=== PATIENT | male | born 1950 | race Hispanic/Latino ===

== ENCOUNTER 2017-12-20 16:08 | Inpatient (IN) | payer OTHER ==
[2017-12-20 16:24] LABS: #Basophils 0.1 thou/uL (0.0-0.2); #Eosinphils 0.2 thou/uL (0.0-0.7); #Lymphocytes 2.8 thou/uL (1.20-3.40); #Monocytes 1.2 thou/uL (0.11-0.59); #Neutrophils 6.4 thou/uL (1.40-6.50); %Basophils 0.5 % (0.0-1.0); %Eosinophils 1.8 % (0.0-10.0); %Lymphocytes 26.4 % (21.0-51.0); %Monocytes 11.2 % (0.0-10.0); %Neutrophils 60.2 % (42.0-75.0); Hemoglobin 14.5 g/dL (14.0-18.0); Mean Corpuscular HGB CONC 33.3 g/dL (32.0-36.0); Mean Corpuscular Hemoglobin 29.3 pg (27.0-31.0); Mean Corpuscular Volume 88.1 fl (80.0-94.0); Mean Platelet Volume 7.4 fL (7.4-10.4); Platelet Count 251 thou/uL (130-400); RBC Distribution Width 11.8 % (11.5-14.5); Red Blood Cell (RBC) Count 4.95 mill/uL (4.70-6.10); White Blood Cell (WBC) Count 10.7 thou/uL (4.8-10.8)
[2017-12-20 16:39] LABS: ALT (SGPT) 23 U/L (8-55); AST (SGOT) 21 U/L (5-34); Alkaline Phosphatase 140 U/L (40-150); Anion Gap 13 mmol/L (10-20); BUN (Urea Nitrogen) 16 mg/dL (8.4-25.7); Bilirubin, Total 0.6 mg/dL (0.2-1.2); CK (CPK) 62 U/L (30-200); Calc. Creatinine Clearance 0 mL/min (70-130); Calcium 9.4 mg/dL (7.8-10.44); Carbon Dioxide 25 mmol/L (23-31); Chloride 101 mmol/L (98-107); Estimated GFR-MDRD 88; Globulin 4.9 g/dL (2.4-3.5); Glucose 94 mg/dL (80-115); Protein, Total 8.9 g/dL (5.8-8.1); Sodium 135 mmol/L (136-145)
[2017-12-20 16:44] LABS: CKMB 1.5 ng/mL (0-6.6); Troponin I Less than 0.010 ng/mL (< 0.028)
[2017-12-20] MEDS ORDERED: Diltiazem HCl 125 MG, Admixture Fee 1 EACH in Sodium Chloride 0.9% 100 ML IVPB SCH (17:15)
--- NOTE | 2017-12-20 17:46 | RAD ---
PA AND LATERAL CHEST: Date: 12-20-17 History: Cough. Comparison: None available. FINDINGS: Cardiac silhouette and pulmonary vasculature are within normal limits. Lungs are clear. Vascular calc ifications are seen in the thoracic aorta. Osseous structures are intact. IMPRESSION: No acute cardiopulmonary process. POS: LLOYDH
[2017-12-20] MEDS ORDERED: Ondansetron HCl/PF 4 MG/2 ML Vial IVP PRN (19:02)
[2017-12-20] MEDS ORDERED: Ondansetron ODT 4 MG TAB SL PRN (19:02)
[2017-12-20] MEDS ORDERED: Acetaminophen 325 MG TAB PO PRN ×2 (19:02→21:58)
[2017-12-20 19:54] LABS: Troponin I 0.014 ng/mL (< 0.028)
[2017-12-20] MEDS ORDERED: Enoxaparin Sodium 80 MG/0.8 ML SYRINGE SC SCH (20:00)
[2017-12-20] MEDS ORDERED: Guaifenesin DM 100-10/5 ML UDCUP PO PRN (21:58)
[2017-12-20] MEDS ORDERED: Acetaminophen 650 MG Suppository PR PRN (21:58)
[2017-12-20] MEDS ORDERED: Zolpidem Tartrate 5 MG TAB PO PRN (21:58)
[2017-12-20] MEDS ORDERED: Bisacodyl 5 MG TAB PO PRN (21:58)
[2017-12-20] MEDS ORDERED: Diltiazem 125 MG in Sodium Chloride 0.9% 100 ML IVPB SCH (22:00)
[2017-12-20 22:17] VITALS: BMI 29.0
--- NOTE | 2017-12-20 22:40 | HP ---
PRIMARY CARE PHYSICIAN: Bertha Qureshi M.D. CHIEF COMPLAINT: Chest pain. HISTORY OF PRESENT ILLNESS: Mr. Johnson is a pleasant 67-year-old gentleman who was seen at [facility] on 12/20/2017. He mainly speaks Welsh. History was obtained through a commodity buyer. He returned from a trip to [place] 2 weeks ago. After that, he has been having cough. He has also be en having shortness of breath with exertion. He also reports fatigue and generalized weakness. He r eports that he had mild chest discomfort over the last couple of weeks. He reports that this mild di scomfort turned into pressure today afternoon. He describes it as retrosternal, 3/10 at its worst, n onradiating, worse after coughing a lot, not worse with exertion, not accompanied by nausea or lighth eadedness, but accompanied by shortness of breath. He cannot recall any relieving factors. He also reports having palpitations. REVIEW OF SYSTEMS: The following complete review of systems was negative, unless otherwise mentioned in the HPI or below: Constitutional: Weight loss or gain, ability to conduct usual activities. Sk in: Rash, itching. Eyes: Double vision, pain. ENT/Mouth: Nose bleeding, neck stiffness, pain, te nderness. Cardiovascular: Palpitations, dyspnea on exertion, orthopnea. Respiratory: Shortness of breath, wheezing, cough, hemoptysis, fever or night sweats. Gastrointestinal: Poor appetite, abdom inal pain, heartburn, nausea, vomiting, constipation, or diarrhea. Genitourinary: Urgency, frequenc y, dysuria, nocturia. Musculoskeletal: Pain, swelling. Neurologic/Psychiatric: Anxiety, depressio n. Allergy/Immunologic: Skin rash, bleeding tendency. PAST MEDICAL HISTORY: Hypertension. PAST SURGICAL HISTORY: None. SOCIAL HISTORY: Occasional alcohol use, no tobacco use or recreational drug use. ALLERGIES: No known drug allergies. CURRENT MEDICATIONS: These need to be clarified. He takes an antihypertensive medication in additio n to aspirin 81 mg daily. FAMILY HISTORY: No family history of premature coronary artery disease. CODE STATUS: I discussed his code status. He is FULL CODE. PHYSICAL EXAMINATION: GENERAL: Mr. Johnson is awake and alert, not in acute distress. VITAL SIGNS: Blood pressure is 110/78, pulse is 96, his breathing at rate of 18, and saturating 97% on room air. He is afebrile. EYES: No scleral icterus. No conjunctival pallor. ENT: Moist mucosal membranes, no oropharyngeal erythema or exudates. NECK: Supple, nontender, normal range of movement. Trachea is midline. RESPIRATORY: Accessory muscles of breathing are not active. Chest wall movements are symmetric bila terally. LUNGS: Clear to auscultation without wheeze, rhonchi or crepitations. CARDIOVASCULAR: S1 and S2 are heard, irregular. Peripheral pulses palpable. No carotid bruit, no p ericardial rub. ABDOMEN: Soft, nontender, bowel sounds are heard, no hepatomegaly, no splenomegaly. NEUROLOGIC: Cranial nerves II-XII intact. Deep tendon reflexes are 2+. MUSCULOSKELETAL: Power is 5/5 in all 4 extremities. SKIN: No rashes or subcutaneous nodules. LYMPHATIC: No cervical lymphadenopathy. PSYCHIATRIC: Normal mood, normal affect, patient is oriented to person, place, and time. LABORATORY DATA: Mr. Johnson's labs and investigations were reviewed. I reviewed his electrocardiogr am, which shows atrial fibrillation with rapid ventricular response, no ST changes to suggest an acut e coronary syndrome. He also has premature ventricular complexes. I also reviewed his chest x-ray, which does not show any pulmonary infiltrates. He has an unremarkable CBC, decreased sodium of 135, otherwise unremarkable comprehensive metabolic profile and troponin I that is negative x2. ASSESSMENT AND PLAN: Mr. Johnson is a pleasant 67-year-old gentleman who was seen at [facility] on 12/20/2017. His problem list includes: 1. Chest pain: Etiology unclear, he has risk factors for coronary artery disease as well as for pul monary embolism. He has been started on therapeutic Lovenox, which I will continue. We will check D -dimer. We will also check stress test. We will also obtain echocardiogram. If there are any signi ficant abnormalities in the right ventricle, he may need a CT angiogram of the chest to rule out pulm onary embolism. 2. Atrial fibrillation with rapid ventricular response: He has been started on a Cardizem drip, whi ch I will continue. He will likely need a long-term anticoagulation based on his CHADS2 score. We w ill continue with therapeutic Lovenox for now. We will consult Cardiology Service for opinion and he lp with management. We will check 2D echocardiogram. We will also check TSH level. 3. Hypertension: Resume home medications once clarified, monitor vital signs and titrate antihypert ensives as needed. 4. Hyponatremia: Mild, likely asymptomatic. Recheck sodium level. Many thanks for allowing me to participate in your patient's care. Please feel free to contact me wi th any questions or concerns. LEVEL OF RISK: High. LEVEL OF COMPLEXITY: High.
[2017-12-20] MEDS ORDERED: Carvedilol 6.25 MG TAB PO SCH (23:45)
[2017-12-21 05:39] LABS: #Eosinphils 0.3 thou/uL (0.0-0.7); #Lymphocytes 2.4 thou/uL (1.20-3.40); #Neutrophils 5.6 thou/uL (1.40-6.50); %Basophils 0.5 % (0.0-1.0); %Eosinophils 2.8 % (0.0-10.0); %Lymphocytes 26.3 % (21.0-51.0); %Monocytes 10.4 % (0.0-10.0); Hemoglobin 13.2 g/dL (14.0-18.0); Mean Corpuscular HGB CONC 31.5 g/dL (32.0-36.0); Mean Corpuscular Hemoglobin 27.7 pg (27.0-31.0); Mean Corpuscular Volume 87.9 fl (80.0-94.0); Mean Platelet Volume 8.1 fL (7.4-10.4); Platelet Count 230 thou/uL (130-400); RBC Distribution Width 11.9 % (11.5-14.5); Red Blood Cell (RBC) Count 4.75 mill/uL (4.70-6.10); White Blood Cell (WBC) Count 9.3 thou/uL (4.8-10.8)
[2017-12-21 06:35] LABS: Anion Gap 14 mmol/L (10-20); BUN (Urea Nitrogen) 13 mg/dL (8.4-25.7); Calc. Creatinine Clearance 109 mL/min (70-130); Calcium 8.8 mg/dL (7.8-10.44); Carbon Dioxide 21 mmol/L (23-31); Chloride 103 mmol/L (98-107); Estimated GFR-MDRD Greater than 90; Glucose 87 mg/dL (80-115); Sodium 134 mmol/L (136-145)
[2017-12-21] MEDS ORDERED: Prevnar 13-Val Conj/PF 0.5 ML SYRINGE IM ONE (09:00)
[2017-12-21] MEDS ORDERED: Enoxaparin Sodium 40 MG/0.4 ML SYRINGE SC SCH (09:00)
[2017-12-21] MEDS: Carvedilol 6.25 MG TAB PO SCH ×2 (09:38→17:31)
[2017-12-21] MEDS: Aspirin 81 mg Enteric Coated Tablet PO SCH (09:39)
[2017-12-21] MEDS: Enoxaparin Sodium 80 MG/0.8 ML SYRINGE SC SCH ×2 (09:39→20:21)
[2017-12-21] MEDS ORDERED: Cefdinir 300 MG CAP PO SCH (09:45)
[2017-12-21 09:58] LABS: Hemoglobin A1c 5.6 % (4.0-6.0)
[2017-12-21] MEDS: Diltiazem 125 MG in Sodium Chloride 0.9% 100 ML IVPB SCH (16:07)
--- NOTE | 2017-12-21 17:26 | PDOC.PN ---
- Subjective Encounter Start Date: 12/21/17 Encounter Start Time: 11:00 Patient seen and examined. No new complaints. No overnight events. On Cardizem drip. Productive cough + - Objective Resuscitation Status: Resuscitation Status FULL:Full Resuscitation MAR Reviewed: Yes Vital Signs & Weight: Vital Signs (12 hours) Temp Pulse Resp BP BP Pulse Ox 12/21/17 15:15 98.1 F 92 18 143/90 H 98 12/21/17 11:40 98.2 F 89 18 127/82 12/21/17 09:38 117/68 12/21/17 08:00 98.2 F 103 H 16 12/21/17 07:02 98.2 F 103 H 16 123/79 Weight Weight 174 lb 9.6 oz I&O: 12/20/17 12/21/17 12/22/17 06:59 06:59 06:59 Intake Total 240 Output Total 450 Balance -210 Result Diagrams: 12/21/17 03:55 12/21/17 03:55 Radiology Reviewed by me: Yes (CXR - no infiltrate) EKG Reviewed by me: Yes (Tele - Afib) Phys Exam - Physical Examination Constitutional: NAD Neck: no JVD, supple Respiratory: no wheezing, no rales Coarse BS B/L, Symmetrical Cardiovascular: no rub, irregular no heaves/pulsations Gastrointestinal: soft, non-tender, no distention, positive bowel sounds Musculoskeletal: no edema Neurological: non-focal, normal sensation, moves all 4 limbs Psychiatric: A&O x 3 Dx/Plan - Plan IMPRESSION: 1. Afib with RVR - on Cardizem drip 2. CP - Trops negative 3. Acute Bronchitis ?CAP - suspected Pneumococcal 4. HTN 5. Hyponatremia PLAN: * Cont Cardizem drip - reduce to 2.5 mg/hr * Await Cardiology input * Cont Carvedilol * Add Omnicef/Doxy * Cont to monitor * AM labs including lipids * A1c negative Review of Systems - Review of Systems Respiratory: Cough, SOB with Excertion, Sputum. negative: Dry, Shortness of Breath, Hemoptysis, Pleuritic Pain, Wheezing Cardiovascular: negative: chest pain, palpitations, orthopnea, paroxysmal nocturnal dyspnea, edema, light headedness - Medications/Allergies Allergies/Adverse Reactions: Allergies Allergy/AdvReac Type Severity Reaction Status Date / Time No Known Allergies Allergy Unverified 12/20/17 17:13 Medications: Current Medications Acetaminophen (Tylenol) 650 mg PO Q4H PRN PRN Reason: Headache/Fever or Pain Last Admin: 12/21/17 13:54 Dose: 650 mg Acetaminophen (Tylenol) 650 mg [place] Q4H PRN PRN Reason: Headache/Fever or Pain Aspirin (Ecotrin) 81 mg PO DAILY [facility] Last Admin: 12/21/17 09:39 Dose: 81 mg Bisacodyl (Dulcolax) 10 mg PO DAILYPRN PRN PRN Reason: Constipation Carvedilol (Coreg) 6.25 mg PO BID-[facility] Last Admin: 12/21/17 09:38 Dose: 6.25 mg Cefdinir (Omnicef) 300 mg PO BID [facility] Doxycycline Hyclate (Vibramycin) 100 mg PO BID [facility] Enoxaparin Sodium (Lovenox) 80 mg SC 0900,2100 [facility] Last Admin: 12/21/17 09:39 Dose: 80 mg Guaifenesin/Dextromethorphan (Robitussin Dm) 15 ml PO Q4H PRN PRN Reason: Cough Diltiazem HCl 125 mg/ Sodium (Chloride) 125 mls @ 2.5 mls/hr IVPB INF [facility]OCKY; 2.5 MG/HR PRN Reason: Protocol Last Admin: 12/21/17 16:07 Dose: 125 mls Sodium Chloride (Flush - Normal Saline) 10 ml IVF Q12HR [facility] Sodium Chloride (Flush - Normal Saline) 10 ml IVF PRN PRN PRN Reason: Saline Flush Zolpidem Tartrate (Ambien) 5 mg PO HSPRN PRN PRN Reason: Insomnia
[2017-12-21] MEDS ORDERED: Labetalol HCl 100 MG/20 ML VIAL SLOW IVP PRN (17:27)
[2017-12-21] MEDS: Doxycycline 100 MG CAP PO SCH (20:21)
[2017-12-21] MEDS: Cefdinir 300 MG CAP PO SCH (20:21)
[2017-12-21] MEDS ORDERED: Doxycycline 100 MG CAP PO SCH (21:00)
--- NOTE | 2017-12-21 21:35 | CON ---
DATE OF CONSULTATION: 12/21/2017 HISTORY: Svitlana Hernandez is a 67-year-old male who only has a past medical history of hypertension. Approximately 2 weeks ago, he started to cough and took some [id number] medications, which did not seem to help. He also noted at times his heart beating very rapidly and some chest pressure associated with this. Ultimately, he came to emergency room and was found to be in atrial fibrillation with fast ventricular response and was admitted for further treatment and evaluation. He denies any previous cardiac problems. He denies any history of heart murmur or rheumatic fever. PAST MEDICAL HISTORY: Hypertesion. He denies any history of hypercholesterolemia or diabetes. MEDICATIONS: Carvedilol 6.25 b.i.d., aspirin 81 daily. ALLERGIES: None. OPERATIONS: None. SOCIAL HISTORY: He smoked 1/3 of a pack per day, but stopped 7 years ago. He occasionally drinks alcohol. FAMILY HISTORY: Negative for coronary artery disease. REVIEW OF SYSTEMS: Twelve point review of systems unremarkable. PHYSICAL EXAMINATION: VITAL SIGNS: 127/82, pulse of 89 and irregularly irregular. HEENT: PERRL. NECK: Supple. CHEST: Clear. CARDIAC: S1 and S2 are normal, without any S3 or S4. There is a 2-3/6 holosystolic murmur at the apex that radiates to the axilla. Carotid upstrokes normal without bruits. ABDOMEN: Normal bowel sounds, without tenderness, organomegaly. EXTREMITIES: Revealed no clubbing, cyanosis, or edema. NEUROLOGIC: Grossly intact. SKIN: Warm and dry. LABORATORY AND X-RAY FINDINGS: EKG reveals atrial fibrillation with rate of 104 per minute. Chest x-ray is unremarkable. Sodium 134, potassium 4.0, chloride 103, carbon dioxide 21, BUN 13, creatinine 0.75. Hemoglobin A1c 5.6, troponin I x3 is normal. CK-MB is normal. TSH is normal. D-dimer 0.50. IMPRESSION: 1. Atrial fibrillation with fast ventricular response. It is unclear exactly when this started. 2. Systolic murmur. 3. Hypertension. 4. Unknown cholesterol status. 5. Former smoker. PLAN: At the present time, his rate is well controlled with intravenous Cardizem. Echocardiogram will be performed to assess left ventricular function as well as to better evaluate his murmur. He will undergo adenosine Cardiolite testing unless he has severe left ventricular dysfunction. Once his left ventricular function is known from echo then other medication will be started. He probably will eventually need to undergo transesophageal echo and electrical cardioversion. AUGUST
[2017-12-22 04:45] LABS: #Basophils 0.1 thou/uL (0.0-0.2); #Eosinphils 0.1 thou/uL (0.0-0.7); #Neutrophils 9.3 thou/uL (1.40-6.50); %Basophils 0.4 % (0.0-1.0); %Eosinophils 0.9 % (0.0-10.0); %Lymphocytes 16.1 % (21.0-51.0); %Monocytes 8.3 % (0.0-10.0); %Neutrophils 74.4 % (42.0-75.0); Mean Corpuscular HGB CONC 32.6 g/dL (32.0-36.0); Mean Corpuscular Hemoglobin 28.3 pg (27.0-31.0); Mean Corpuscular Volume 86.8 fl (80.0-94.0); Mean Platelet Volume 8.3 fL (7.4-10.4); Platelet Count 230 thou/uL (130-400); RBC Distribution Width 11.8 % (11.5-14.5); Red Blood Cell (RBC) Count 4.96 mill/uL (4.70-6.10); White Blood Cell (WBC) Count 12.5 thou/uL (4.8-10.8)
[2017-12-22 05:07] LABS: Albumin 3.5 g/dL (3.4-4.8); Anion Gap 13 mmol/L (10-20); BUN (Urea Nitrogen) 16 mg/dL (8.4-25.7); BUN/Creatinine Ratio 21.33; Calc. Creatinine Clearance 109 mL/min (70-130); Carbon Dioxide 22 mmol/L (23-31); Chloride 99 mmol/L (98-107); Cholesterol 133 mg/dl (< 200 Desired); Estimated GFR-MDRD Greater than 90; Glucose 98 mg/dL (80-115); HDL Cholesterol 33 mg/dL (>60 Neg Risk); LDL Cholesterol, Calculated 87 mg/dL; Magnesium 2.2 mg/dL (1.6-2.6); Phosphorus 3.4 mg/dL (2.3-4.7); Potassium 4.2 mmol/L (3.5-5.1); Sodium 130 mmol/L (136-145); Triglycerides 64 mg/dL (Less than 150)
--- NOTE | 2017-12-22 08:10 | RAD ---
PA AND LATERAL OF THE CHEST: Indication: Cough and fever. Concern for pneumonia. FINDINGS: There is new airspace opacity seen within the region of the lower lingula. Right lung is clear. Mild cardiomegaly is stable. No pleural effusion is evident. No acute osseous abnormality is evident. IMPRESSION: Lingular infiltrate is new from the comparison examination suspicious for early pneumonia. Recommend radiographic follow up to resolution. POS: LLOYDH
--- NOTE | 2017-12-22 12:12 | NM ---
CARDIAC SPECT: CLINICAL HISTORY: 67-year-old male with chest pain, atrial fibrillation, and hypertension. TECHNIQUE: A myocardial perfusion scan was performed using the single isotope one day protocol with technetium-9 9m sestamibi. 11 mCi were injected intravenously for the rest exam followed by 30 mCi for the stress exam. Pharmacologic stress with Adenosine was monitored and interpreted by Dr. Cooper. FINDINGS: Homogeneous tracer distribution is seen in the myocardial segments on stress and rest images without fixed or reversible defects. GATED SPECT LVEF: 47%. WALL MOTION EXAM: No significant wall motion abnormalities are seen. IMPRESSION: Normal myocardial perfusion scan. POS: NICKY
[2017-12-22] MEDS: Enoxaparin Sodium 80 MG/0.8 ML SYRINGE SC SCH ×2 (12:14→20:23)
[2017-12-22] MEDS: Carvedilol 6.25 MG TAB PO SCH ×2 (12:14→17:24)
[2017-12-22] MEDS: Aspirin 81 mg Enteric Coated Tablet PO SCH (12:14)
[2017-12-22] MEDS: Cefdinir 300 MG CAP PO SCH ×2 (12:15→20:23)
[2017-12-22] MEDS: Doxycycline 100 MG CAP PO SCH ×2 (12:15→20:23)
--- NOTE | 2017-12-22 13:38 | PDOC.PN ---
- Subjective Encounter Start Date: 12/22/17 Encounter Start Time: 10:30 Patient seen and examined. On Cardizem drip. Coughing improving. No overnight events - Objective Resuscitation Status: Resuscitation Status FULL:Full Resuscitation MAR Reviewed: Yes Vital Signs & Weight: Vital Signs (12 hours) Temp Pulse Resp BP Pulse Ox 12/22/17 07:45 98.9 F 82 18 117/76 95 12/22/17 07:35 98.9 F 82 18 95 12/22/17 03:50 99.7 F H 100 20 114/56 L 94 L Weight Weight 169 lb 4.8 oz I&O: 12/21/17 12/22/17 12/23/17 06:59 06:59 06:59 Intake Total 240 707 Output Total 450 1075 Balance -210 -368 Result Diagrams: 12/22/17 03:56 12/22/17 03:56 Radiology Reviewed by me: Yes (CXR - Lingular infiltrate) EKG Reviewed by me: Yes (Tele Afib) Phys Exam - Physical Examination Constitutional: NAD HEENT: moist MMs Neck: no JVD Respiratory: no wheezing, no rhonchi Scat rales, Symmetrical Cardiovascular: RRR, no rub no heaves/pulsations Gastrointestinal: soft, non-tender, no distention, positive bowel sounds Musculoskeletal: no edema Neurological: non-focal, moves all 4 limbs Psychiatric: A&O x 3 Dx/Plan - Plan continue antibiotics, DVT proph w/lovenox IMPRESSION: 1. Afib with RVR - on Cardizem drip 2. CP - Trops negative 3. Sepsis due to CAP -?Pneumococcal 4. HTN 5. Hyponatremia PLAN: * Await Stress test * Cont Cardizem drip with Coreg * On anticoag for Afib * Cardiology input appreciateed * Cont Omnicef/Doxy * Cont to monitor * AM labs Laboratory Tests 12/22/17 03:56 Triglycerides 64 Cholesterol 133 LDL Cholesterol, Calc 87 Review of Systems - Review of Systems Constitutional: negative: fever, chills, sweats, weakness, malaise Cardiovascular: negative: chest pain, palpitations, orthopnea, paroxysmal nocturnal dyspnea, edema, light headedness Gastrointestinal: negative: Nausea, Vomiting, Abdominal Pain, Diarrhea, Constipation, Melena, Hematochezia - Medications/Allergies Allergies/Adverse Reactions: Allergies Allergy/AdvReac Type Severity Reaction Status Date / Time No Known Allergies Allergy Unverified 12/20/17 17:13 Medications: Current Medications Acetaminophen (Tylenol) 650 mg PO Q4H PRN PRN Reason: Headache/Fever or Pain Last Admin: 12/21/17 13:54 Dose: 650 mg Acetaminophen (Tylenol) 650 mg [place] Q4H PRN PRN Reason: Headache/Fever or Pain Aspirin (Ecotrin) 81 mg PO DAILY [facility] Last Admin: 12/22/17 12:14 Dose: 81 mg Bisacodyl (Dulcolax) 10 mg PO DAILYPRN PRN PRN Reason: Constipation Carvedilol (Coreg) 6.25 mg PO BID-[facility] Last Admin: 12/22/17 12:14 Dose: 6.25 mg Cefdinir (Omnicef) 300 mg PO BID [facility] Last Admin: 12/22/17 12:15 Dose: 300 mg Doxycycline Hyclate (Vibramycin) 100 mg PO BID [facility] Last Admin: 12/22/17 12:15 Dose: 100 mg Enoxaparin Sodium (Lovenox) 80 mg SC 0900,2100 [facility] Last Admin: 12/22/17 12:14 Dose: 80 mg Guaifenesin/Dextromethorphan (Robitussin Dm) 15 ml PO Q4H PRN PRN Reason: Cough Diltiazem HCl 125 mg/ Sodium (Chloride) 125 mls @ 2.5 mls/hr IVPB INF ROCKY; 2.5 MG/HR PRN Reason: Protocol Last Admin: 12/21/17 16:07 Dose: 125 mls Labetalol HCl (Normodyne) 10 mg SLOW IVP Q4H PRN PRN Reason: Systolic BP > 180 Sodium Chloride (Flush - Normal Saline) 10 ml IVF Q12HR [facility] Last Admin: 12/22/17 12:15 Dose: Not Given Sodium Chloride (Flush - Normal Saline) 10 ml IVF PRN PRN PRN Reason: Saline Flush Zolpidem Tartrate (Ambien) 5 mg PO HSPRN PRN PRN Reason: Insomnia
[2017-12-22] MEDS ORDERED: ADENOSINE 60 MG/20 ML VIAL ONE (16:36)
[2017-12-22] MEDS: Dronedarone HCl 400 MG TAB PO SCH (17:23)
[2017-12-22] MEDS: Diltiazem 125 MG in Sodium Chloride 0.9% 100 ML IVPB SCH (20:26)
[2017-12-23 05:27] LABS: #Eosinphils 0.2 thou/uL (0.0-0.7); #Lymphocytes 2.1 thou/uL (1.20-3.40); #Monocytes 0.9 thou/uL (0.11-0.59); #Neutrophils 6.7 thou/uL (1.40-6.50); %Eosinophils 1.5 % (0.0-10.0); %Monocytes 9.4 % (0.0-10.0); %Neutrophils 68.1 % (42.0-75.0); Hemoglobin 13.9 g/dL (14.0-18.0); Mean Corpuscular HGB CONC 32.9 g/dL (32.0-36.0); Mean Corpuscular Hemoglobin 29.3 pg (27.0-31.0); Mean Corpuscular Volume 89.3 fl (80.0-94.0); Platelet Count 248 thou/uL (130-400); RBC Distribution Width 11.7 % (11.5-14.5); Red Blood Cell (RBC) Count 4.72 mill/uL (4.70-6.10); White Blood Cell (WBC) Count 9.9 thou/uL (4.8-10.8)
[2017-12-23 05:37] LABS: Albumin 3.4 g/dL (3.4-4.8); Anion Gap 10 mmol/L (10-20); BUN (Urea Nitrogen) 14 mg/dL (8.4-25.7); BUN/Creatinine Ratio 17.72; Calc. Creatinine Clearance 100 mL/min (70-130); Carbon Dioxide 25 mmol/L (23-31); Chloride 101 mmol/L (98-107); Estimated GFR-MDRD Greater than 90; Glucose 100 mg/dL (80-115); Phosphorus 3.5 mg/dL (2.3-4.7); Potassium 3.8 mmol/L (3.5-5.1); Sodium 132 mmol/L (136-145)
[2017-12-23] MEDS: Aspirin 81 mg Enteric Coated Tablet PO SCH (08:19)
[2017-12-23] MEDS: Enoxaparin Sodium 80 MG/0.8 ML SYRINGE SC SCH ×2 (08:19→21:41)
[2017-12-23] MEDS: Furosemide 20 MG TAB PO SCH (08:19)
[2017-12-23] MEDS: Cefdinir 300 MG CAP PO SCH ×2 (08:19→21:41)
[2017-12-23] MEDS: Doxycycline 100 MG CAP PO SCH ×2 (08:19→21:41)
[2017-12-23] MEDS: Dronedarone HCl 400 MG TAB PO SCH ×2 (08:19→17:22)
[2017-12-23] MEDS: Carvedilol 6.25 MG TAB PO SCH ×2 (08:19→17:22)
--- NOTE | 2017-12-23 15:33 | PQF ---
CLINICAL DOCUMENTATION IMPROVEMENT CLARIFICATION FORM: ICD-10 Updated PLEASE DO AN ADDENDUM TO THE PROGRESS NOTE WITH ANY DOCUMENTATION UPDATES OR ADDITIONS AND CARRY THROUGH TO DC SUMMARY. THANK YOU. DATE: 12/23/17 ATTN: DR. QUESADA Please exercise your independent, professional judgment in responding to the clarification form. Clinical indicators are provided on the bottom of this form for your review Diagnosis: SEPSIS Present on Admission (POA): [x ] Yes [ ] No [ ] Unable to determine Coding guidelines require hospitals to identify whether a diagnosis was present on admission (POA) or not. To accurately assign the appropriate POA indicator, this information must be clearly documented within the medical record. CLINICAL INDICATORS - SIGNS / SYMPTOMS / LABS PROGRESS NOTE 12/22: "SEPSIS DUE TO CAP- ? PNEUMOCOCCAL" WBC 12/22: 12.5 PULSE 147 RR 24 RISKS: PNEUMONIA TREATMENT: OMNICEF (12/21/17-PRESENT) DOXYCYCLINE (12/21-PRESENT) TELEMETRY MONITORING (This form is maintained as a part of the permanent medical record) 2014 [employer]. All Rights Reserved [email or web address] [email or web address] Office: [phone] AUGUST
--- NOTE | 2017-12-23 20:28 | PDOC.PN ---
- Subjective Encounter Start Date: 12/23/17 Encounter Start Time: 14:00 Patient seen and examined. No new complaints. No overnight events. in Afib - Objective Resuscitation Status: Resuscitation Status FULL:Full Resuscitation MAR Reviewed: Yes Vital Signs & Weight: Vital Signs (12 hours) Temp Pulse Resp BP Pulse Ox 12/23/17 16:39 98.2 F 67 18 100/73 96 12/23/17 12:14 97.9 F 96 18 120/55 L 96 Weight Weight 169 lb 4.8 oz I&O: 12/22/17 12/23/17 12/24/17 06:59 06:59 06:59 Intake Total 707 Output Total 1075 Balance -368 Result Diagrams: 12/23/17 04:32 12/23/17 04:32 EKG Reviewed by me: Yes (Tele Afib) Phys Exam - Physical Examination Constitutional: NAD Respiratory: no wheezing, no rhonchi Scat rales at bases Cardiovascular: RRR, irregular Gastrointestinal: soft, non-tender, positive bowel sounds Musculoskeletal: no edema Neurological: moves all 4 limbs Psychiatric: A&O x 3 Dx/Plan - Plan DVT proph w/lovenox, DVT proph w/SCDs IMPRESSION: 1. Afib with RVR 2. CP - Trops negative 3. Sepsis due to CAP -?Pneumococcal - present on admission 4. HTN 5. Hyponatremia PLAN: * Cont Cardizem drip * On anticoag for Afib * Cardiology following * Cont Omnicef/Doxy * Cont to monitor Review of Systems - Review of Systems Respiratory: negative: Cough, Dry, Shortness of Breath, Hemoptysis, SOB with Excertion, Pleuritic Pain, Sputum, Wheezing Cardiovascular: negative: chest pain, palpitations, orthopnea, paroxysmal nocturnal dyspnea, edema, light headedness - Medications/Allergies Allergies/Adverse Reactions: Allergies Allergy/AdvReac Type Severity Reaction Status Date / Time No Known Allergies Allergy Unverified 12/20/17 17:13 Medications: Current Medications Acetaminophen (Tylenol) 650 mg PO Q4H PRN PRN Reason: Headache/Fever or Pain Last Admin: 12/21/17 13:54 Dose: 650 mg Acetaminophen (Tylenol) 650 mg [place] Q4H PRN PRN Reason: Headache/Fever or Pain Aspirin (Ecotrin) 81 mg PO DAILY [facility] Last Admin: 12/23/17 08:19 Dose: 81 mg Bisacodyl (Dulcolax) 10 mg PO DAILYPRN PRN PRN Reason: Constipation Carvedilol (Coreg) 6.25 mg PO BID-[facility] Last Admin: 12/23/17 17:22 Dose: 6.25 mg Cefdinir (Omnicef) 300 mg PO BID [facility] Last Admin: 12/23/17 08:19 Dose: 300 mg Doxycycline Hyclate (Vibramycin) 100 mg PO BID [facility] Last Admin: 12/23/17 08:19 Dose: 100 mg Dronedarone (Multaq) 400 mg PO BID-[facility] Last Admin: 12/23/17 17:22 Dose: 400 mg Enoxaparin Sodium (Lovenox) 80 mg SC 0900,2100 [facility] Last Admin: 12/23/17 08:19 Dose: 80 mg Furosemide (Lasix) 20 mg PO DAILY [facility] Last Admin: 12/23/17 08:19 Dose: 20 mg Guaifenesin/Dextromethorphan (Robitussin Dm) 15 ml PO Q4H PRN PRN Reason: Cough Diltiazem HCl 125 mg/ Sodium (Chloride) 125 mls @ 2.5 mls/hr IVPB INF [facility]; 2.5 MG/HR PRN Reason: Protocol Last Admin: 12/22/17 20:26 Dose: 125 mls Labetalol HCl (Normodyne) 10 mg SLOW IVP Q4H PRN PRN Reason: Systolic BP > 180 Sodium Chloride (Flush - Normal Saline) 10 ml IVF Q12HR [facility] Last Admin: 12/23/17 08:20 Dose: Not Given Sodium Chloride (Flush - Normal Saline) 10 ml IVF PRN PRN PRN Reason: Saline Flush Zolpidem Tartrate (Ambien) 5 mg PO HSPRN PRN PRN Reason: Insomnia
[2017-12-24] MEDS: Dronedarone HCl 400 MG TAB PO SCH ×2 (08:26→17:07)
[2017-12-24] MEDS: Enoxaparin Sodium 80 MG/0.8 ML SYRINGE SC SCH ×2 (08:26→20:06)
[2017-12-24] MEDS: Carvedilol 6.25 MG TAB PO SCH ×2 (08:26→17:07)
[2017-12-24] MEDS ORDERED: Diprivan 20 ML ONE (11:58)
[2017-12-24] MEDS ORDERED: Diprivan 0 ML ONE (11:58)
[2017-12-24] MEDS: Doxycycline 100 MG CAP PO SCH ×2 (15:01→20:07)
[2017-12-24] MEDS: Cefdinir 300 MG CAP PO SCH ×2 (15:01→20:07)
[2017-12-24] MEDS: Aspirin 81 mg Enteric Coated Tablet PO SCH (15:01)
[2017-12-24] MEDS: Furosemide 20 MG TAB PO SCH (15:01)
[2017-12-24] MEDS ORDERED: Propofol 200 MG/20 ML VIAL ONE (15:27)
[2017-12-24] MEDS ORDERED: Digoxin 0.125 MG TAB PO SCH (18:15)
[2017-12-24] MEDS ORDERED: Apixaban 5 MG TAB PO SCH (21:00)
--- NOTE | 2017-12-24 22:02 | PDOC.PN ---
- Subjective Encounter Start Date: 12/24/17 Encounter Start Time: 10:30 Patient seen and examined. No new complaints. No overnight events. On Cardizem drip. - Objective Resuscitation Status: Resuscitation Status FULL:Full Resuscitation MAR Reviewed: Yes Vital Signs & Weight: Vital Signs (12 hours) Temp Pulse Resp BP BP Pulse Ox 12/24/17 20:04 98.3 F 108 H 16 104/77 98 12/24/17 17:05 97.8 F 68 18 123/70 99 12/24/17 13:23 59 L 18 129/66 98 12/24/17 11:02 97.9 F 105 H 18 120/72 97 Weight Weight 165 lb 4.8 oz I&O: 12/23/17 12/24/17 12/25/17 06:59 06:59 06:59 Intake Total 120 170 Output Total 650 0 Balance -530 170 Result Diagrams: 12/25/17 04:34 12/25/17 04:34 EKG Reviewed by me: Yes (Tele Afib) Phys Exam - Physical Examination Constitutional: NAD Respiratory: no wheezing, no rhonchi Cardiovascular: no rub, irregular Gastrointestinal: soft, non-tender, positive bowel sounds Musculoskeletal: no edema Neurological: moves all 4 limbs Dx/Plan - Plan plan discussed w/ family, continue antibiotics IMPRESSION: 1. Afib with RVR - on Cardizem drip 2. CP - Trops negative 3. Sepsis due to CAP -?Pneumococcal - present on admission 4. HTN 5. Hyponatremia - improving PLAN: * Cont Cardizem drip * YENNI-CV today * On Lovenox 1mg/kg * Cardiology following * Cont Omnicef/Doxy * Cont to monitor Review of Systems - Review of Systems Respiratory: negative: Cough, Dry, Shortness of Breath, Hemoptysis, SOB with Excertion, Pleuritic Pain, Sputum, Wheezing Cardiovascular: negative: chest pain, palpitations, orthopnea, paroxysmal nocturnal dyspnea, edema, light headedness Gastrointestinal: negative: Nausea, Vomiting, Abdominal Pain, Diarrhea, Constipation, Melena, Hematochezia - Medications/Allergies Allergies/Adverse Reactions: Allergies Allergy/AdvReac Type Severity Reaction Status Date / Time No Known Allergies Allergy Unverified 12/20/17 17:13 Medications: Current Medications Acetaminophen (Tylenol) 650 mg PO Q4H PRN PRN Reason: Headache/Fever or Pain Last Admin: 12/21/17 13:54 Dose: 650 mg Acetaminophen (Tylenol) 650 mg [place] Q4H PRN PRN Reason: Headache/Fever or Pain Apixaban (Eliquis) 5 mg PO BID [facility] Last Admin: 12/24/17 20:06 Dose: 5 mg Aspirin (Ecotrin) 81 mg PO DAILY [facility] Last Admin: 12/24/17 15:01 Dose: 81 mg Bisacodyl (Dulcolax) 10 mg PO DAILYPRN PRN PRN Reason: Constipation Carvedilol (Coreg) 6.25 mg PO BID-[facility] Last Admin: 12/24/17 17:07 Dose: 6.25 mg Cefdinir (Omnicef) 300 mg PO BID [facility] Last Admin: 12/24/17 20:07 Dose: 300 mg Digoxin (Lanoxin) 0.25 mg PO DAILY [facility] Doxycycline Hyclate (Vibramycin) 100 mg PO BID [facility] Last Admin: 12/24/17 20:07 Dose: 100 mg Enoxaparin Sodium (Lovenox) 80 mg SC 0900,2100 [facility] Stop: 12/25/17 12:00 Last Admin: 12/24/17 20:06 Dose: 80 mg Furosemide (Lasix) 20 mg PO DAILY [facility] Last Admin: 12/24/17 15:01 Dose: 20 mg Guaifenesin/Dextromethorphan (Robitussin Dm) 15 ml PO Q4H PRN PRN Reason: Cough Labetalol HCl (Normodyne) 10 mg SLOW IVP Q4H PRN PRN Reason: Systolic BP > 180 Sodium Chloride (Flush - Normal Saline) 10 ml IVF Q12HR [facility] Last Admin: 12/24/17 20:07 Dose: 10 ml Sodium Chloride (Flush - Normal Saline) 10 ml IVF PRN PRN PRN Reason: Saline Flush Zolpidem Tartrate (Ambien) 5 mg PO HSPRN PRN PRN Reason: Insomnia
--- NOTE | 2017-12-24 22:06 | ECHO ---
This is a 67-year-old gentleman with paroxysmal atrial fibrillation and mitral regurgitation. DESCRIPTION OF PROCEDURE: The patient taken to PACU. The patient sedated by anesthesiology. Transesophageal probe was placed d istally in the esophagus and stomach. Echocardiograms were obtained. Transesophageal probe was remove d. FINDINGS 1. Biatrial enlargement. 2. 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 3. Moderate to severe mitral regurgitation. 4. Mild tricuspid regurgitation. 5. No thrombus in the appendage. 6. Atherosclerotic debris in the descending aorta. IMPRESSION: No formed thrombus in atrium/left atrial appendage with prolapse of the posterior mitral valve leafle t and moderate to severe mitral regurgitation.
[2017-12-25 05:59] LABS: Hemoglobin 14.6 g/dL (14.0-18.0); Platelet Count 281 thou/uL (130-400)
[2017-12-25 06:09] LABS: Anion Gap 13 mmol/L (10-20); BUN (Urea Nitrogen) 14 mg/dL (8.4-25.7); Calc. Creatinine Clearance 94 mL/min (70-130); Calcium 9.3 mg/dL (7.8-10.44); Carbon Dioxide 23 mmol/L (23-31); Chloride 102 mmol/L (98-107); Estimated GFR-MDRD Greater than 90; Glucose 94 mg/dL (80-115); Sodium 134 mmol/L (136-145)
[2017-12-25 08:05] VITALS: TEMP 97.5
[2017-12-25] MEDS: Carvedilol 6.25 MG TAB PO SCH (08:34)
[2017-12-25] MEDS: Doxycycline 100 MG CAP PO SCH (08:35)
[2017-12-25] MEDS: Aspirin 81 mg Enteric Coated Tablet PO SCH (08:35)
[2017-12-25] MEDS: Furosemide 20 MG TAB PO SCH (08:40)
[2017-12-25] MEDS: Cefdinir 300 MG CAP PO SCH (08:40)
[2017-12-25] MEDS: Enoxaparin Sodium 80 MG/0.8 ML SYRINGE SC SCH (08:42)
[2017-12-25] MEDS ORDERED: Digoxin 0.25 MG TAB PO SCH (09:00)
[2017-12-25] MEDS ORDERED: Enoxaparin Sodium 80 MG/0.8 ML SYRINGE SC SCH (09:00)
[2017-12-25] MEDS ORDERED: Apixaban 5 MG TAB PO SCH ×2 (10:00→21:00)
[2017-12-25] MEDS ORDERED: Amiodarone 200 MG TAB PO SCH ×2 (10:00→21:00)
[2017-12-25 13:49] VITALS: BP 120/83
--- NOTE | 2017-12-25 15:39 | CON ---
ELECTROPHYSIOLOGY CONSULTATION NOTE DATE OF CONSULTATION: 12/25/2017 REFERRING PHYSICIAN: Marquis Kahn M.D. I am seeing Mr. Hernandez at our [facility] telemetry floor as an electrophysiology hematology oncology consultant. His pr oblems are: 1. Persistent atrial arrhythmias. A. Presentation with atrial fibrillation with rapid rate, status post cardioversion on 12/24/2017 wi th subsequent recurrence of atrial flutter, which self-terminated, then atrial fibrillation resumed. B. Lovenox for anticoagulation. 2. Nonsustained medical tachycardia, on telemetry. 3. Valvular heart disease. A. YENNI from 12/24/2017 reveals normal LVEF, moderate to severe MR, biatrial enlargement, mild tricus pid regurgitation. B. Lexiscan from 12/22/2017 shows LVEF of 47%, no ischemia or scar. 4. Coronary artery risk factors. A. Prior history of smoking. B. Hypertension. ALLERGIES: None noted. MEDICATIONS AT HOME: Included carvedilol 6.25 twice a day, aspirin 81 daily and nitroglycerin 0.4 mg sublingual p.r.n. SUBJECTIVE: Mr. Johnson is a Irish speaking only. History is mostly obtained from the chart and al so discussion in Irish. This gentleman has been experiencing increasing shortness of breath with e xertion and generalized weakness, not much chest discomforts for the last couple of weeks prior to ad mission. He had felt some palpitations, but no true angina-like discomforts. He is not having nause a, vomiting or diaphoresis. He denies PND, orthopnea or excess fluid overload. Dyspnea was mostly e xertional. He denies passing out or dizzy spells. No stroke-like symptoms or bleeding issues. REVIEW OF SYSTEMS: Rest of 12-point systems was unremarkable. PAST MEDICAL HISTORY: As above. He denies history of rheumatic fever or prolonged childhood illness . SOCIAL HISTORY: He stopped smoking 7 years ago, but reported several pack per day smoking, does drin k alcohol on occasion. Denies drug use. FAMILY HISTORY: Noncontributory. OBJECTIVE DATA: VITAL SIGNS: Blood pressure is 120/81, heart rate 66, respirations 20 and temperature 97.5 degrees F ahrenheit. GENERAL: This is an alert and oriented man in no apparent distress. NECK: Supple. Jugular veins not distended. CHEST: Coarse without crackles. CARDIAC: Heart sounds are irregularly irregular. S1 and S2 variable. There is 2/6 holosystolic mur murs heard at the left lower sternal border. PMI is nonpalpable. ABDOMEN: Benign. Bowel sounds positive. EXTREMITIES: Lower extremities without edema, clubbing or cyanosis. DATABASE: Telemetry strips reveals atrial fibrillation. Currently after cardioversion, brief sinus rhythm was converted to atrial flutter, which self-terminated to sinus rhythm, but again shortly afte r that atrial fibrillation recurred. A short run of nonsustained VT is seen. EKG considered atrial fibrillation on admission and sinus rhythm post-cardioversion. No significant QT prolongation. Narr ow QRS is noted. LABORATORY DATA: Sodium 134, potassium 4, BUN is 13 and creatinine is 0.5. Electrolytes with sodium of 135, potassium 4, BUN 16 and creatinine is 0.87. White blood cell count is 9.9, hemoglobin 13.9 and platelet count is 248. D-dimer is 0.5. ASSESSMENT AND PLAN: Mr. Hernandez is a pleasant 67-year-old man with a prior history of hypertension, who is now presented with atrial fibrillation with rapid rates with associated dyspnea. His YENNI dem onstrated moderate to severe mitral regurgitation and biatrial enlargement. Cardioversion was with r ecurrence of atrial flutter than fibrillation. He also had nonsustained ventricular tachycardia, which is unprovoked and asymptomatic. On the other hand, he has normal left ventricular ejection fraction and no prior history of loss of consciousness . We discussed the issue with Dr. Kahn. At this point, it would be reasonable to consider some ant iarrhythmic agents to suppress this patient's arrhythmia. Sotalol versus amiodarone could be contemp lated. At this point, patient would like to go home. Outpatient amiodarone loading is reasonable. Monitoring of his heart rate might be necessary. Long Term, we can consider switching amiodarone if a ffordable to [place]. We also discussed the future plans for atrial fibrillation. Reevaluation of his mitral regurgitation might be necessary after stabilization and possible quaker of sinus rhythm. If indeed the mitr al regurgitation worsens and his left ventricular function becomes more depressed, he might need mitr al valve surgery in which setting we could consider a maze procedure alternatively or in addition to left atrial ablation procedure also a consideration. He will likely benefit for anticoagulation. Eliquis would be reasonable. No definite evidence of rh eumatic heart disease or mitral stenosis present. Dr. Kahn will see him as an outpatient. Thank you again for allowing me to participate in the care of this patient.
--- NOTE | 2017-12-26 00:26 | DIS ---
DISCHARGE DIAGNOSES: 1. Atrial fibrillation with rapid ventricular response. 2. Atypical chest pain, likely secondary to atrial fibrillation. 3. Sepsis with community-acquired pneumonia. 4. Hypertension. 5. Hyponatremia. HOSPITAL COURSE: While the patient was in hospital, the patient was seen by Cardiology. The patient underwent transesophageal cardioversion, which was successful. The patient also was placed on amiod arone as well as Eliquis. The patient was found to have community-acquired pneumonia thought to be p neumococcal in nature. The patient was started on antibiotics. The patient had improved significant ly and was asymptomatic with no further interventions that were required. Considering the patient do ing significantly well, we are comfortable discharging the patient home with prescriptions for amioda miles, Lasix, Eliquis as well as Augmentin. The patient was instructed to follow up with primary care physician in 1 week as well as communications director as per the recommendations. DISPOSITION: To home. DISCHARGE CONDITION: Significantly improved from when he first came in. DISCHARGE MEDICATIONS: Please see home reconciled medication list. DISCHARGE DIET: Heart-healthy diet. FOLLOWUP APPOINTMENTS: As stated, the patient will follow up with primary care physician in one week as well as Cardiology as per the recommendations. DISCHARGE PLAN: Discharge plan was greater than 30 minutes.
[2017-12-26] MEDS ORDERED: Digoxin 0.125 MG TAB PO SCH (09:00)
--- NOTE | 2017-12-26 19:03 | EKG ---
Test Reason : Blood Pressure : / mmHG Vent. Rate : 104 BPM Atrial Rate : 080 BPM P-R Int : 000 ms QRS Dur : 074 ms QT Int : 288 ms P-R-T Axes : 000 024 026 degrees QTc Int : 378 ms Atrial fibrillation with rapid ventricular response with premature ventricular or aberrantly conducte d complexes Abnormal ECG Confirmed by JAVIER VERMA, HENRIQUE ([id number]), editor school photograph JOSIAS JOHNSON ([id number]) on 12/26/2017 7:02:16 PM Referred By: Confirmed By:HENRIQUE HERRERA MD
== END 2017-12-25 15:06 | disposition home or self-care (01) | DRG 308 ==
LOC: ERS 16:08 → 2NO 18:03
PROVIDERS: ADMIT Internal Medicine; ATTEND Internal Medicine
PROC: 5A2204Z Restoration of Cardiac Rhythm, Single (ICD-10-PCS; principal; 2017-12-24)
PROC: B24BZZ4 Ultrasonography of Heart with Aorta, Transesophageal (ICD-10-PCS; 2017-12-24)
DX: I48.91 Unspecified atrial fibrillation (principal); A41.9 Sepsis, unspecified organism; I47.2 Ventricular tachycardia; E87.1 Hypo-osmolality and hyponatremia; I10 Essential (primary) hypertension; Z79.01 Long term (current) use of anticoagulants; Z79.82 Long term (current) use of aspirin; I08.1 Rheumatic disorders of both mitral and tricuspid valves; Z87.891 Personal history of nicotine dependence
CPT/HCPCS: 36415; 71046; 78452; 80048; 80053; 80061; 80069; 82553; 83036; 83735; 84443; 84484; 85014; 85018; 85025; 85049; 85379; 90471; 90670; 92960; 93005; 93010; 93017; 93306; 93312; 94760; 96365; A4216; A9500; G0009; J0153; J1650; J2704; J7050

== ENCOUNTER 2020-08-31 14:21 | Outpatient (CLI) | payer MEDICARE ==
--- NOTE | 2020-08-31 14:38 | RAD ---
PA AND LATERAL VIEWS CHEST: HISTORY: Smoking addiction. COMPARISON: 12/22/2017. FINDINGS: The heart size is borderline. The aorta is tortuous. No lobar consolidation, pneumothoraces, or ple ural effusions are seen. There is mild prominence of the interstitial markings. Mild degenerative c hanges are seen in the spine. IMPRESSION: No acute process. POS: AH
== END 2020-08-31 14:22 | disposition home or self-care (01) ==
LOC: BICRAD 14:21
PROVIDERS: ATTEND Family Medicine
DX: F17.200 Nicotine dependence, unspecified, uncomplicated (principal)
CPT/HCPCS: 71046

== ENCOUNTER 2020-10-30 09:30 | Emergency (ER) | payer MEDICARE ==
[2020-10-30] MEDS ORDERED: Diltiazem 125 MG/25 ML ONE (09:54)
--- NOTE | 2020-10-30 10:08 | RAD ---
Chest one view HISTORY: Tobacco abuse. COMPARISON: 08/31/2020 FINDINGS: Cardiac silhouette is magnified and enlarged. Pulmonary vasculature are unremarkable. Mediastinum is midline with aortic calcification. No lobar consolidation or evidence of pneumothorax. IMPRESSION : Cardiomegaly. No acute abnormalities are demonstrated. Atherosclerosis.
[2020-10-30 10:15] LABS: #Eosinphils 0.1 thou/uL (0.0-0.7); #Lymphocytes 1.9 thou/uL (1.20-3.40); #Monocytes 0.6 thou/uL (0.11-0.59); %Basophils 0.2 % (0.0-1.0); %Eosinophils 0.8 % (0.0-10.0); %Lymphocytes 29.7 % (21.0-51.0); %Monocytes 8.8 % (0.0-10.0); %Neutrophils 60.6 % (42.0-75.0); Hemoglobin 14.2 g/dL (14.0-18.0); Mean Corpuscular HGB CONC 33.7 g/dL (32.0-36.0); Mean Corpuscular Hemoglobin 29.6 pg (27.0-31.0); Mean Corpuscular Volume 88.1 fL (78.0-98.0); Mean Platelet Volume 7.7 fL (7.4-10.4); Platelet Count 220 thou/uL (130-400); Red Blood Cell (RBC) Count 4.78 mill/uL (4.70-6.10); White Blood Cell (WBC) Count 6.5 thou/uL (4.8-10.8)
[2020-10-30 10:37] LABS: ALT (SGPT) 35 U/L (8-55); AST (SGOT) 35 U/L (5-34); Albumin 4.1 g/dL (3.4-4.8); Alkaline Phosphatase 136 U/L (40-110); Anion Gap 16 mmol/L (10-20); BUN (Urea Nitrogen) 13 mg/dL (8.4-25.7); Bilirubin, Total 0.7 mg/dL (0.2-1.2); Calc. Creatinine Clearance 0 mL/min (70-130); Calcium 8.5 mg/dL (7.8-10.44); Carbon Dioxide 26 mmol/L (23-31); Chloride 102 mmol/L (98-107); Globulin 3.8 g/dL (2.4-3.5); Glucose 104 mg/dL (80-115); Potassium 5.5 mmol/L (3.5-5.1); Protein, Total 7.9 g/dL (5.8-8.1); Sodium 138 mmol/L (136-145)
--- NOTE | 2020-11-03 14:21 | EKG ---
Test Reason : Blood Pressure : / mmHG Vent. Rate : 099 BPM Atrial Rate : 138 BPM P-R Int : 000 ms QRS Dur : 086 ms QT Int : 312 ms P-R-T Axes : 048 052 047 degrees QTc Int : 400 ms Undetermined rhythm Otherwise normal ECG Confirmed by ALANIS PONCE DO ([id number]), proposal editor PATRICK HADDAD ([id number]) on 11/03/2020 2:20:36 PM Referred By: Confirmed By:ALANIS PONCE DO
== END 2020-10-30 11:18 | disposition home or self-care (01) ==
LOC: ERS 09:30
DX: I48.91 Unspecified atrial fibrillation (principal); E11.9 Type 2 diabetes mellitus without complications; I10 Essential (primary) hypertension; Z87.442 Personal history of urinary calculi; Z79.82 Long term (current) use of aspirin; Z79.899 Other long term (current) drug therapy
CPT/HCPCS: 36415; 71045; 80053; 84484; 85025; 93005

== ENCOUNTER 2024-09-20 08:11 | Outpatient (CLI) | payer OTHER | END 2024-09-20 08:12 | disposition home or self-care (01) | LOC: CT 08:11 | PROVIDERS: ATTEND Nurse Practitioner Family | DX: Z12.2 Encounter for screening for malignant neoplasm of respiratory organs (principal); Z13.6 Encounter for screening for cardiovascular disorders; R59.0 Localized enlarged lymph nodes; Z87.891 Personal history of nicotine dependence | CPT/HCPCS: 71271; 76775 ==